=== PATIENT | male | born 1955 | race Caucasian/White ===

== ENCOUNTER 2017-03-06 10:30 | Inpatient (IN) | payer OTHER ==
[~2017-03-06] VITALS: Ht 170.2 cm; Wt 79.8 kg
[2017-03-06 10:41] VITALS: BP 158/91
[2017-03-06] MEDS ORDERED: ATOR10TA PO (10:46)
[2017-03-06] MEDS ORDERED: OMEP20TC10 PO (10:47)
[2017-03-06] MEDS ORDERED: MECL-272 PO (10:47)
--- NOTE | 2017-03-06 11:10 | NUR ---
Patient being evaluated by Dr. Ward in triage.
--- NOTE | 2017-03-06 11:12 | NUR ---
61/M BIB FAMILY C/O DIZZINESS 03/04/17, DENIES SYNCOPE, LEFT SHOULDER PAIN RADIATING DOWN LEFT ARM, NUMBNESS AND TINGLING; SENT FROM URGENT CARE FOR FURTHER EVALUATION; HX OF HERNIA X1 YEAR, WORSENING PAIN TODAY. DENIES N/V/D; SKIN IS PINK/WARM/DRY; AAOX4 WITH EVEN AND STEADY GAIT; LUNGS CLEAR BL; HR EVEN AND REGULAR; PT DENIES ANY FEVER, CP, SOB, OR COUGH AT THIS TIME; PATIENT STATES PAIN OF 0/10 AT THIS TIME; VSS; PATIENT POSITIONED FOR COMFORT; HOB ELEVATED; BEDRAILS UP X2; BED DOWN. ER MD MADE AWARE OF PT STATUS.
[2017-03-06] MEDS ORDERED: LORazepam 2 MG/ML VIAL IVP ONE (11:20)
[2017-03-06] MEDS ORDERED: MECLIZINE 25 MG TAB PO ONE (11:20)
[2017-03-06] MEDS ORDERED: NACL 0.9% 1,000 ML IV ONE (11:20)
--- NOTE | 2017-03-06 11:28 | NUR ---
Patient taken from ED lobby to XRAY/CT scan via wheelchair by tech.
[2017-03-06 12:16] LABS: HEMATOCRIT 40.8 % (36-52); HEMOGLOBIN 13.5 g/dL (12.0-18.0); MEAN CORPUSCULAR HEMOGLOBIN 31 pg (27-31); MEAN CORPUSCULAR HGB CONC 33 g/dL (33-37); MEAN CORPUSCULAR VOLUME 93 fL (80-94); PLATELET COUNT (AUTO) 251 K/uL (140-450); RED BLOOD CELL COUNT(AUTO) 4.37 MIL/uL (4.20-6.10); RED CELL DISTRIBUTION WIDTH 12.4 % (11.6-13.7); WHITE BLOOD COUNT (AUTO) 5.9 K/uL (4.8-10.8)
[2017-03-06 12:43] LABS: ANION GAP 11.8 (8-16); CALCIUM 8.9 mg/dL (8.5-10.1); CARBON DIOXIDE 29.4 mmol/L (21-32); CREATININE 0.8 mg/dL (0.6-1.3); POTASSIUM 4.2 mmol/L (3.5-5.1)
[2017-03-06 12:45] LABS: INR 1.1 (0.8-1.2); PARTIAL THROMBOPLASTIN TIME 23.6 secs (22-35.6); PROTHROMBIN TIME 10.2 secs (10.8-13.4)
[2017-03-06 12:51] LABS: BAND % (MANUAL) 2 % (0-8); EOSINOPHILS % (MANUAL) 2 % (0-4); LYMPHOCYTES % (MANUAL) 36 % (20-46); MONOCYTES % (MANUAL) 8 % (5-12); NEUTROPHILS % (MANUAL) 52 (43-65)
[2017-03-06 12:52] LABS: CREATINE KINASE MB 0.9 ng/mL (0-3.6)
[2017-03-06 12:56] LABS: MAGNESIUM 2.3 mg/dL (1.8-2.4); THYROID STIMULATING HORMONE 3.21 uIU/mL (0.34-3.76); TOTAL BILIRUBIN 0.4 mg/dL (0.0-1.0); TOTAL PROTEIN, SERUM 8.1 g/dL (6.4-8.2)
[2017-03-06] MEDS ORDERED: ASPIRIN 325 MG TAB PO ONE (13:05)
[2017-03-06] MEDS ORDERED: MORPHINE SULFATE 2 MG/ML SYR IVP PRN (13:40)
[2017-03-06] MEDS ORDERED: DOCUSATE SODIUM 100 MG GELCAP PO PRN (13:40)
[2017-03-06] MEDS ORDERED: ONDANSETRON 4 MG/2 ML VIAL IM/IVP PRN (13:40)
[2017-03-06] MEDS ORDERED: HYDROcodone/APAP 7.5/325 MG 1 TAB PO PRN (13:40)
[2017-03-06] MEDS ORDERED: ACETAMINOPHEN 325 MG TAB PO PRN (13:40)
--- NOTE | 2017-03-06 13:50 | NUR ---
CALLED TO GIVE REPORT .ADOLFO MCCABE DURING LUNCH BREAK WILL CALL BACK IN 10 MINS
--- NOTE | 2017-03-06 14:13 | NUR ---
Patient will be admitted to care of DR ROQUE. Admited to TELE. Will go to room 106A. Belongings list completed. Report to ELIOT.
[2017-03-06 14:25] LABS: AMPHETAMINE, URINE NEG. ng/ml (NEG <=1000); BARBITURATE, URINE NEG. ng/ml (NEG <=200); BENZODIAZEPINE, URINE NEG. ng/mL (NEG <=200); CANNABINOID, URINE NEG. ng/mL (NEG <=50); COCAINE, URINE NEG. ng/mL (NEG <=300); OPIATE, URINE NEG. ng/mL (NEG <=2000); PHENCYCLIDINE SCREEN,URINE NEG. ng/mL (NEG <=25)
[2017-03-06 14:36] LABS: CHOL/HDL RATIO 4.7 (1-4.5); FREE T4 (FREE THYROXINE) 0.78 ng/dL (0.76-1.46); PHOSPHORUS 3.5 mg/dL (2.5-4.9)
[2017-03-06 14:40] VITALS: BP 138/83
--- NOTE | 2017-03-06 14:45 | NUR ---
RECEIVED PT FROM ER PER MONICA. ASSISTED BY ER NURSE SARAH. PT AWAKE, ALERT, ORIENTEDX4. NO SOB NOTED. DENIES ANY PAIN OR DISCOMFORT AT THIS TIME. SKIN INTACT. PALPABLE ABDOMINAL HERNIA NOTED ON MID UPPER ABDOMEN. PT AMBULATORY WITH STANDBY ASSIST. SAFETY PRECAUTION IN PLACE CALL LIGHT WITHIN REACH.
--- NOTE | 2017-03-06 14:50 | NUR ---
PT HOOKED TO IVF. ATTACHED TO TELEBOX. SON NETTA AT BEDSIDE.
[2017-03-06] MEDS: NACL 0.9% 1,000 ML IV SCH (14:57)
[2017-03-06 16:00] VITALS: BP 137/75
[2017-03-06] MEDS ORDERED: MECLIZINE 25 MG TAB PO PRN (18:00)
[2017-03-06] MEDS ORDERED: ASPI81CT89 PO (18:26)
--- NOTE | 2017-03-06 19:00 | NUR ---
FAMILY WITH PT. REQUESTED TO SEE ATTENDING PHYSICIAN. DR ROQUE CAME TO SEE PT. AND DISCUSSED WITH PT AND FAMILY THE PLAN TO TRANSFER PT TO ANOTHER HOSPITAL. FAMILY VERBALIZED UNDERSTANDING.
--- NOTE | 2017-03-06 19:00 | NUR ---
SPOKE WITH GALILEO DIRECTOR OF (OVER THE PHONE) REGARDING PT'S TRANSFER TO [facility] (PT'S CONTRACTED FACILITY). DR. ROQUE (ATTENDING) ALREADY GAVE REPORT TO DR. Jamir GARBER (ACCEPTING DRLidia ). PER GALILEO, PT'S INSURANCE WILL MAKE THE ARRANGEMENTS. WE NEED TO WAIT FOR [facility] [employer] TO GIVE US THE BED# AT [facility] AND THE AUTHORIZATION FOR TRANSPORTATION, HAS TO BE [facility] (ACLS). THEN CALL [facility] TO CONFIRM THE BED#. CHARGE NURSE TIGRE MADE AWARE.
--- NOTE | 2017-03-06 19:29 | NUR ---
ENDORSED TO STATEMENT SERVICES REPRESENTATIVE THE DISCHARGE ORDER FOR PT. STILL WAITING FOR CALL BACK FROM [facility] REGARDING PT BED AT [facility]. PT ON STABLE CONDITION. DENIES ANY PAIN OR DISCOMFORT AT THIS TIME. KEPT, CLEAN DRY AND COMFORTABLE, NEEDS ATTENDED.
--- NOTE | 2017-03-06 19:35 | NUR ---
RECEIVED PT AWAKE ON BED TALKING TO FAMILY MEMBERS AT BEDSIDE, IVF INFUSING WELL, VITAL SIGNS STABLE, PT HAS SLIGHT DIZZINESS, ENCOURAGE TO CALL IF DIZZINESS GETS WORST, DENIES HEADACHE AT THIS TIME, PLAN OF CARE DISCUSSED, PT AND FAMILY AWARE FOR TRANSFER TO CONTRACTED FACILITY [facility], PER CHARGE NURSE LAURIE WILL WAIT FOR [facility] TO CALL US FOR BED AVAILABILITY, SAFETY MEASURES IN PLACE, CALL LIGHT WITHIN REACH.
[2017-03-06 20:00] VITALS: BP 132/71
--- NOTE | 2017-03-06 21:34 | NUR ---
PT AMBULATED TO BR WITH STEADY GAIT, NO DIZZINESS NOTED, IVF INFUSING WELL, STILL AWAITING BED AVAILABILITY FROM [facility], ALL NEEDS ATTENDED.
--- NOTE | 2017-03-06 22:51 | NUR ---
GOT A CALL FROM NGOZI OF [facility], UPDATED ON PT'S CONDITION, HE SAID HE WILL CALL FOR OTHER CONTRACTED HOSPITAL FOR BED AVAILABILITY, NUMBER TO CALL HIM IF THERE ARE CHANGES IS #[phone].
--- NOTE | 2017-03-06 23:15 | NUR ---
NGOZI FROM [facility] CALLED REQUESTING H&P, LABS AND RADIOLOGY RESULTS TO BE FAXED TO HIM SO HE CAN FAX IT TO [facility] FOR POSSIBLE ACCEPTING FACILITY FOR THE PT, INFO FAX TO #[phone].
[2017-03-07] VITALS: BP 129/75
--- NOTE | 2017-03-07 | NUR ---
PT SLEEPING, EASILY AROUSABLE, VITAL SIGNS STABLE, DENIES ANY PAIN, VERBALIZED STILL WITH SLIGHT DIZZINESS, IVF INFUSING WELL, CONTINUE TO MONITOR CLOSELY.
[2017-03-07 04:00] VITALS: BP 114/68
--- NOTE | 2017-03-07 04:00 | NUR ---
PT SLEEPING, EASILY AROUSABLE, VITAL SIGNS STABLE, NO CHANGE IN CONDITION, STILL WAITING FOR BED AVAILABILITY.
--- NOTE | 2017-03-07 05:20 | NUR ---
PT COMPLAINING OF HEADACHE 01/10, OFFERED PAIN MEDICATION BUT PT REFUSED AT THIS TIME, HE WILL WAIT UNTIL PAIN GET WORST, CALL LIGHT WITHIN REACH.
[2017-03-07] MEDS: NACL 0.9% 1,000 ML IV SCH (05:27)
[2017-03-07 06:13] LABS: BASOPHILS # (AUTO) 0.1 K/uL (0.00-0.22); BASOPHILS % (AUTO) 1.8 % (0.0-2.0); EOSINOPHILS # (AUTO) 0.2 K/uL (0-0.4); EOSINOPHILS % (AUTO) 3.2 % (0.0-4.0); HEMATOCRIT 39.1 % (36-52); HEMOGLOBIN 13.2 g/dL (12.0-18.0); LYMPHOCYTES # (AUTO) 2.1 K/uL (2.0-11.5); LYMPHOCYTES % (AUTO) 34.4 % (20.5-51.1); MEAN CORPUSCULAR HEMOGLOBIN 32 pg (27-31); MEAN CORPUSCULAR HGB CONC 34 g/dL (33-37); MEAN CORPUSCULAR VOLUME 94 fL (80-94); MONOCYTES # (AUTO) 0.6 K/uL (0.8-1.0); MONOCYTES % (AUTO) 9.2 % (1.7-9.3); NEUTROPHILS # (AUTO) 3.1 K/uL (1.8-7.7); NEUTROPHILS % (AUTO) 51.4 % (42.2-75.2); PLATELET COUNT (AUTO) 221 K/uL (140-450); RED BLOOD CELL COUNT(AUTO) 4.17 MIL/uL (4.20-6.10); RED CELL DISTRIBUTION WIDTH 12.6 % (11.6-13.7); WHITE BLOOD COUNT (AUTO) 6.1 K/uL (4.8-10.8)
[2017-03-07 06:34] LABS: MAGNESIUM 2.1 mg/dL (1.8-2.4); PHOSPHORUS 3.5 mg/dL (2.5-4.9)
[2017-03-07 06:35] LABS: ANION GAP 11.6 (8-16); CALCIUM 8.3 mg/dL (8.5-10.1); CARBON DIOXIDE 27.9 mmol/L (21-32); CREATININE 0.9 mg/dL (0.6-1.3); POTASSIUM 4.5 mmol/L (3.5-5.1)
--- NOTE | 2017-03-07 07:16 | NUR ---
ENDORSED PLAN OF CARE TO DAY SHIFT RN. PT RESTING IN BED, NO S/S OF ACUTE DISTRESS NOTED, PT IS STABLE.
--- NOTE | 2017-03-07 07:28 | NUR ---
PT AWAKE, NO SIGNS OF DISTRESS, REPORT GIVEN TO ADOLFO MCCABE FOR CONTINUITY OF CARE.
--- NOTE | 2017-03-07 07:29 | NUR ---
RECEIVED PT IN BED. AWAKE, ALERT ORIENTEDX4. NO SOB NOTED. DENIES ANY PAIN OR DISCOMFORT AT THIS TIME. POSITIVE BOWEL SOUNDS NOTED ON FOUR QUADRANTS. PT AMBULATORY. CALL LIGHT WITHIN REACH SAFETY PRECAUTION IN PLACE.
[2017-03-07 08:00] VITALS: BP 136/80
[2017-03-07] MEDS ORDERED: MECLIZINE 25 MG TAB PO SCH (08:28)
--- NOTE | 2017-03-07 08:46 | NUR ---
PATIENT HAS BEEN SCREENED AND CATEGORIZED HIGH NUTRITION RISK. PATIENT WILL BE SEEN WITHIN 1-2 DAYS OF ADMISSION. 03/06/17-03/07/[address]
[2017-03-07] MEDS ORDERED: MECLIZINE 25 MG TAB PO PRN (09:00)
[2017-03-07 09:13] LABS: T4 (THYROXINE) 6.1 ug/dL (4.5-12.0)
--- NOTE | 2017-03-07 09:51 | NUR ---
CHAZ NOTE SPOKE WITH [facility] PH# [phone] [phone] AND SHE SAID REVIEWS SHOULD ONLY BE SENT TO [facility]. FAXED INITIAL REVIEW TO [facility] FAX# [phone] ATTN CHAZ WEINBERG PH# [phone]. LEFT A VOICEMAIL TO CHAZ WEINBERG TO FOLLOW UP ON BED TO [facility].
--- NOTE | 2017-03-07 10:36 | NUR ---
CM NOTE SPOKE WITH CHAZ WEINBERG OF [facility] PH# [phone] AND SHE SAID THAT IF PATIENT WILL BE DISCHARGED TODAY THERE IS NO NEED TO TRANSFER TO CONTRACTED HOSPITAL. DR. TILLMAN AWARE.
[2017-03-07 12:00] VITALS: BP 143/74
--- NOTE | 2017-03-07 15:30 | NUR ---
DISCHARGE ORDER MADE AND CARRIED OUT. DISCHARGE INSTRUCTIONS AND HEALTH TEACHINGS GIVEN TO PT. PT VERBALIZED UNDERSTANDING. PT SIGNED DISCHARGE PAPERS. NO SOB NOTED, DENIES ANY PAIN OR DISCOMFORT AT THIS TIME. PT KEPT CLEAN, DRY AND COMFORTABLE.
--- NOTE | 2017-03-07 16:20 | NUR ---
TELEBOX REMOVED. IV CANNULA REMOVED AND INTACT. WHEELED PT OUT OF THE HOSPITAL PARKING LOT, WITH AND SON NETTA TO THEIR PRIVATE OWN VEHICLE ON STABLE CONDITION.
[2017-03-07 18:43] LABS: HEMOGLOBIN A1C 5.8 % (4.8-5.6)
== END 2017-03-07 16:20 | disposition short-term general hospital (02) | DRG 149 ==
LOC: MED 10:30 → MTU 13:39
PROVIDERS: ADMIT Family Medicine; ATTEND Family Medicine
DX: H81.10 Benign paroxysmal vertigo, unspecified ear (principal); G90.9 Disorder of the autonomic nervous system, unspecified; E78.5 Hyperlipidemia, unspecified; E78.00 Pure hypercholesterolemia, unspecified; I10 Essential (primary) hypertension; Z53.29 Procedure and treatment not carried out because of patient's decision for other reasons; Z87.891 Personal history of nicotine dependence; Z79.899 Other long term (current) drug therapy
CPT/HCPCS: 36415; 70450; 71010; 80048; 80053; 80305; 82140; 82150; 82550; 82553; 83036; 83690; 83735; 83880; 84100; 84436; 84439; 84443; 84479; 84484; 85025; 85610; 85730; 93005; 96361; 96374; 99285; G0482; J2060; J7030; J8597

== ENCOUNTER 2017-11-14 13:44 | Emergency (ER) | payer OTHER ==
[~2017-11-14] VITALS: Ht 170.2 cm; Wt 78.6 kg
[~2017-11-14 13:44] MED LIST: ASPI81CT89 PO; ATOR10TA PO; MECL-272 PO; OMEP20TC10 PO
[2017-11-14 14:46] VITALS: BP 144/79
--- NOTE | 2017-11-14 14:54 | NUR ---
PT AMBULATES TO BED A
--- NOTE | 2017-11-14 15:02 | NUR ---
PATIENT BIB AND DAUGHTER WITH C/O POSTERIOR HEAD ACHE X 5 DAYS WITH INTERMITTENT DIZZINESS; DENIES N/V/D; CAME BACK FROM [place] 11/12/2017;HX OF [facility] RX OF OMNEPRAZOLE . PT HAS A PRODUCTIVE COUGH;FINISHED CIPRO ANTIBIOTIC BUT NOT GETTING WELL;PT STATES SKIN IS PINK/WARM/DRY; AAOX4 WITH EVEN AND STEADY GAIT;HR EVEN AND REGULAR; PT DENIES ANY FEVER AT THIS TIME;ER MD MADE AWARE OF PT STATUS.
--- NOTE | 2017-11-14 16:00 | NUR ---
DR HAYDEN EVALUATING PT.
--- NOTE | 2017-11-14 16:14 | NUR ---
WENT TO CT SACN ACCOMPANIED BY TECH.
[2017-11-14] MEDS: ALBUTEROL SULFATE/IPRATROPIU 3 ML SOL IH ONE (16:34)
[2017-11-14] MEDS: NACL 0.9% 1,000 ML IV ONE (16:35)
[2017-11-14] MEDS: SUMAtriptan 25 MG TAB PO ONE (16:36)
[2017-11-14] MEDS: KETOROLAC 30 MG/ML VIAL IVP ONE (16:36)
[2017-11-14 17:03] LABS: HEMATOCRIT 42.8 % (36-52); PLATELET COUNT (AUTO) 379 K/uL (140-450)
[2017-11-14 17:05] LABS: BASOPHILS # (AUTO) 0.2 K/uL (0.00-0.22); EOSINOPHILS # (AUTO) 0.2 K/uL (0-0.4); HEMOGLOBIN 14.6 g/dL (12.0-18.0); LYMPHOCYTES # (AUTO) 2.7 K/uL (2.0-11.5); MEAN CORPUSCULAR HEMOGLOBIN 32 pg (27-31); MEAN CORPUSCULAR HGB CONC 34 g/dL (33-37); MEAN CORPUSCULAR VOLUME 93 fL (80-94); MONOCYTES # (AUTO) 0.6 K/uL (0.8-1.0); NEUTROPHILS # (AUTO) 3.6 K/uL (1.8-7.7); RED BLOOD CELL COUNT(AUTO) 4.61 MIL/uL (4.20-6.10); RED CELL DISTRIBUTION WIDTH 12.9 % (11.6-13.7); WHITE BLOOD COUNT (AUTO) 7.3 K/uL (4.8-10.8)
[2017-11-14 17:11] LABS: CARBON DIOXIDE 25.9 mmol/L (21-32); CREATININE 0.8 mg/dL (0.7-1.3); POTASSIUM 3.9 mmol/L (3.5-5.1)
[2017-11-14 17:16] LABS: TOTAL BILIRUBIN 0.2 mg/dL (0.0-1.0)
[2017-11-14 17:18] LABS: APPEARANCE,URINE CLEAR (CLEAR); BILIRUBIN,URINE NEGATIVE (NEGATIVE); BLOOD, URINE NEGATIVE (NEGATIVE); COLOR,URINE YELLOW (YELLOW); LEUKOCYTE ESTERASE ,URINE NEGATIVE (NEGATIVE); NITRITE, URINE NEGATIVE (NEGATIVE); UGLUCOSE NEGATIVE (NEGATIVE)
[2017-11-14 17:54] VITALS: BP 147/75
--- NOTE | 2017-11-14 17:55 | NUR ---
Patient discharged with v/s stable. Written and verbal after care instructions given and explained. Patient alert, oriented and verbalized understanding of instructions. Ambulatory with steady gait. All questions addressed prior to discharge. ID band removed. Patient advised to follow up with PMD. Rx of IBUPROFEN, IMITREX, TESSALON given. Patient educated on indication of medication including possible reaction and side effects. Opportunity to ask questions provided and answered.
== END 2017-11-14 17:55 | disposition home or self-care (01) ==
LOC: MED 13:44
DX: J06.9 Acute upper respiratory infection, unspecified (principal); G43.909 Migraine, unspecified, not intractable, without status migrainosus; I10 Essential (primary) hypertension; Z79.899 Other long term (current) drug therapy; Z79.82 Long term (current) use of aspirin
CPT/HCPCS: 36415; 70450; 71045; 80053; 81003; 84484; 85025; 93005; 94640; 96361; 96374; 99285; J1885; J7030; J7620